=== PATIENT | male | born 1990 | race Caucasian/White ===

== ENCOUNTER 2023-06-20 13:05 | Emergency (ER) | payer SELFPAY ==
[~2023-06-20] VITALS: Ht 182.9 cm; Wt 70.3 kg
[2023-06-20 13:19] VITALS: BP_SYST 134; PULSE 73; RESP 18; TEMP 98.3; O2SAT 97
[2023-06-20 14:12] LABS: BASOPHILS # (AUTO) 0.1 K/uL (0.0-0.2); BASOPHILS % (AUTO) 0.7 % (0.0-2.0); EOSINOPHILS # (AUTO) 0.2 K/uL (0.0-0.4); EOSINOPHILS % (AUTO) 1.6 % (0.0-4.0); HEMATOCRIT 45.2 % (36-54); HEMOGLOBIN 15.7 g/dL (14.0-18.0); LYMPHOCYTES # (AUTO) 3.3 K/uL (1.0-5.5); LYMPHOCYTES % (AUTO) 34.1 % (20.5-51.5); MEAN CORPUSCULAR HEMOGLOBIN 31 pg (27-31); MEAN CORPUSCULAR HGB CONC 35 % (32-36); MEAN CORPUSCULAR VOLUME 90 fL (79.0-98.0); MONOCYTES # (AUTO) 0.6 K/uL (0.0-1.0); MONOCYTES % (AUTO) 5.8 % (1.7-9.3); NEUTROPHILS # (AUTO) 5.7 K/uL (1.8-7.7); NEUTROPHILS % (AUTO) 57.8 % (40.0-70.0); PLATELET COUNT (AUTO) 166 K/uL (130-430); RED BLOOD CELL COUNT(AUTO) 5.04 MIL/uL (4.2-6.2); RED CELL DISTRIBUTION WIDTH 12.3 % (9.0-15.0); WHITE BLOOD COUNT (AUTO) 9.8 K/uL (4.8-10.8)
[2023-06-20 14:29] LABS: CALCIUM 8.2 mg/dL (8.4-11.0); CREATININE 1.12 mg/dL (0.55-1.30); POTASSIUM 3.6 mmol/L (3.5-5.1)
[2023-06-20 14:33] LABS: ALBUMIN 4.4 g/dL (3.4-4.8); TOTAL PROTEIN, SERUM 7.4 g/dL (6.4-8.3)
[2023-06-20] MEDS ORDERED: TRAM50TA2 PO (14:54)
[2023-06-20] MEDS ORDERED: IBUP-1971 PO (14:54)
[2023-06-20 15:11] VITALS: BP_SYST 134; PULSE 73; RESP 18; TEMP 98.3; O2SAT 97
== END 2023-06-20 15:12 | disposition home or self-care (01) ==
LOC: SED 13:05
DX: R68.84 Jaw pain (principal); R20.2 Paresthesia of skin; Z79.899 Other long term (current) drug therapy
CPT/HCPCS: 36415; 70450-TC; 71045; 76376; 80053; 85025; 99284